=== PATIENT | female | born 1945 | race Caucasian/White ===

== ENCOUNTER → 2017-05-22 | Outpatient (CLI) | payer MEDICARE, OTHER ==
[~2017-05-22] MED LIST: ADULT LOW DOSE81 MG; AMLODIPINE10 M2; ATENOLOL25 M1; DOXYCYCLINE HY100 M4 PO; ESCITALOPRAM10 MG; GABAPENTIN100 MG; MECLIZINE 25MG25 MG; PHENERGAN VC +120 ML PO; VICODIN 5/6 EACH/PAK OR; [UNRECOGNIZED DRUG - OTHER]
--- NOTE | 2017-05-29 16:14 | RADIOLOGY REPORT PS360 ---
DIG MAMM-SCREEN POONAM W/CAD ORDERING PHYSICIAN : Robb Soliz MD PATIENT AGE: 71 years GENDER: Female COMPARISON: November 2012, May 2014, June 2015 HISTORY: 71-year-old. No hormones. No new complaints. Noncontributory family history. TECHNIQUE: Std CC & MLO images were obtained. R2 CAD reviewed. FINDINGS: Minimal residual fibroglandular less bilaterally most evident towards upper-outer quadrant . No suspicious dominant mass nor suspicious calcifications nor architectural distortion No malignancy evident radiographically RIGHT BREAST:. No significant new findings. LEFT BREAST: Long-standing stable nodular density at lateral left breast. Previous metallic biopsy marker central breast from prior percutaneous biopsy IMPRESSION: Stable bilateral mammogram. No new findings of significant concern Stable nodular density lateral left breast. BI-RADS CATEGORY: 2_Benign RECOMMENDED FOLLOWUP: 12M 12 MONTH FOLLOW-UP (A letter has been sent to the patient regarding results of the study.)
== END ==
LOC: RAD 09:00
DX: Z12.31 Encounter for screening mammogram for malignant neoplasm of breast (principal)
CPT/HCPCS: G0202